=== PATIENT | male | born 1950 | race Caucasian/White ===

== ENCOUNTER 2021-05-11 19:53 | Inpatient (IN) | payer MEDICARE, OTHER ==
[~2021-05-11] VITALS: Ht 182.9 cm; Wt 74.6 kg
[2021-05-11] MEDS ORDERED: OLANZapine ORAL DISINTEGRATING TAB 5MG PO ONE (20:40)
[2021-05-11 22:05] LABS: BASO # 0.1 10^3/uL (0.0-0.2); BASO % 0.6 % (0.0-1.0); EOS # 0.3 10^3/uL (0.0-0.5); HEMATOCRIT 30.2 % (42.0-52.0); LYMPH # 2.8 10^3/uL (1.5-5.0); LYMPH % 19.9 % (24.0-44.0); MEAN CORPUSCULAR HEMOGLOBIN 34.5 pg (27.0-33.0); MEAN CORPUSCULAR HGB CONC 33.1 g/dl (32.0-36.5); MEAN CORPUSCULAR VOLUME 104.1 fl (80.0-96.0); MONO # 1.2 10^3/uL (0.0-0.8); MONO % 8.5 % (2.0-8.0); NEUTROPHILS # 9.6 10^3/uL (1.5-8.5); NEUTROPHILS % 68.6 % (36.0-66.0); PLATELET COUNT, AUTOMATED 294 10^3/uL (150-450); WHITE BLOOD COUNT 14.1 10^3/uL (4.0-10.0)
[2021-05-11 22:41] LABS: ALBUMIN 3.2 GM/DL (3.2-5.2); BILIRUBIN,DIRECT 0.1 MG/DL (0.0-0.2); BILIRUBIN,TOTAL 0.5 MG/DL (0.2-1.0); CALCIUM LEVEL 8.8 MG/DL (8.8-10.2); CK-MB VALUE MASS 102.5 NG/ML (<3.6); CREATININE FOR GFR 2.84 MG/DL (0.70-1.30); GLOMERULAR FILTRATION RATE 23.4 (>42); MB/CK RELATIVE INDEX 1.88 (< OR =4); POTASSIUM SERUM 4.3 MEQ/L (3.5-5.1); TOTAL PROTEIN 6.4 GM/DL (6.4-8.2); TROPONIN I 2.68 NG/ML (< 0.10)
--- NOTE | 2021-05-11 22:54 | REPVR ---
PROCEDURE INFORMATION: Exam: XR Chest Exam date and time: 05/11/2021 10:09 PM Age: 71 years old Clinical indication: Other: Bizarre behavior TECHNIQUE: Imaging protocol: XR of the chest. Views: 1 view. COMPARISON: No relevant prior studies available. FINDINGS: Lungs: There is decreased inflation of the lungs. Minimal left base atelectasis or scar. No focal infiltrates. Pleural spaces: Unremarkable. No pleural effusion. No pneumothorax. Heart/Mediastinum: The heart is within normal limits considering supine position with AP and lordotic projection. Bones/joints: Unremarkable. IMPRESSION: 1. Minimal left base atelectasis or scar. 2. Otherwise negative supine chest. Electronically signed by: Kenji Chu On 05/11/2021 22:53:31 PM
[2021-05-11] MEDS ORDERED: LORazepam 2 MG/ML VIAL IV STA (23:39)
[2021-05-12] MEDS ORDERED: LORazepam 2 MG/ML VIAL IV PRN (02:30)
[2021-05-12] MEDS ORDERED: MAALOX 30 ML SUSP *UDC PO PRN (02:30)
[2021-05-12] MEDS ORDERED: MOM 30ML SUSPENSION UDC PO PRN (02:30)
--- NOTE | 2021-05-12 02:35 | HPEPDOC ---
[facility] Medical History & Physical Date of Admission May 12, 2021 Date of Service: May 12, 2021 History and Physical CHIEF COMPLAINT: AMS, chorea HISTORY OF PRESENT ILLNESS: 71-year-old male with a history of Parkinson's dis ease. Suspected dementia, gout, diabetes type 2, CKD, BPH and hypertension, lives alone, was brought to ER by his daughter for approximately 1 month history of inappropriate behaviors, poor memory and wandering from the house as well as recurrent and non purposeful flailing movements of the upper and lower extremities. The patient is somnolent and disoriented. In the ER with persistent flailing movements of his arms and legs. Patient currently seeing Dr. Lezama for the management of Parkinson's disorder has been compliant with medications. CT of the head was without acute findings Of note, most concerning is an elevated troponin which was found in the ER of 2.68. This was discussed with the patient's daughter, just to proceed with medical management rather than transfer to Medical Center with PCI capabilities. Risks of and morbidity/mortality were explained. Patient was made DNR/DNI in the ED. Dr. Beverly was consulted from the ER. PAST MEDICAL HISTORY: Parkinson's CKD Suspected dementia Gout DM2 BPH HTN SOCIAL HISTORY: Lives alone, daughter lives 30 min away No reported hx of smoking etoh use, illicit drug use FAMILY HISTORY: unable to obtain ALLERGIES: Please see below. REVIEW OF SYSTEMS: unable to complete ROS as patient is disoriented HOME MEDICATIONS: Please see below. PHYSICAL EXAMINATION: VITAL SIGNS: please see below General: NAD, comfortable HEENT: PERRLA, EOMI, sclerae clear Neck: supple, normal ROM, no JVD Respiratory: lungs CTAB, no wheeze, no rales, no crackles CVS: RRR, normal S1, S2, no murmurs Abdo: soft, no masses, no hepatosplenomegaly, BS+, no rebound tenderness Extremities: no edema, pulses 2+ MSK: no joint deformities, normal ROM Neuro: no focal neuro deficits, moving all 4 extremities, CN2-12 intact. Strength 5/5 in all 4 extremities. No nystagmus. Psych: calm, cooperative, AAO x 3 LABORATORY DATA: See below. IMAGING: CXR (05/11/21) 1. Minimal left base atelectasis or scar. 2. Otherwise negative supine chest. CT head wo contrast (05/12/21): IMPRESSION: 1. Minimal chronic ischemic white matter change and moderate atrophy. 2. Otherwise negative noncontrast head CT MICROBIOLOGY: Please see below. ASSESSMENT: 71-year-old male with a history of Parkinson's disease. Suspected dementia, gout, diabetes type 2, CKD, BPH and hypertension, lives alone, was brought to ER by his daughter for approximately 1 month history of inappropriate behaviors, poor memory and wandering from the house as well as recurrent and non purposeful flailing movements of the upper and lower extremities. Follows with Dr. Lezama for Parkinsons. Neurology consult placed with Dr. Beverly . PLAN: AMS/Behaviours with non purposful choreoform movements/Encephalopathy - CT head wo acute changes, report reviewed above. Moderate atrophy - fall precautions - sitter - Patient has Parkinsons's disease, followed by Dr. Lezama. - Neurology consult placed - patient had been started on seroquel 25 mg BID and trazodone outpateint for behaviours - resume carbidopa/levodopa, premipexole, entecapone NSTEMI - Trop 2.67 on arrival. EKG showing no ST elevation - patient does not c/o chest pain - had a lengthy discussion with patient's daughter, chose DNR/DNI and not to proceed with transfer to PCI facility risks of and morbidity were clearly explained - trend trop, EKG - start ASA, plavix, statin HTN - resume carvedilol, amlodipine Leukocytosis - WBC 14.1 - no obvious source of infection identified at this time - CXR without consolidation, no suggestion of infection on UA - Afebrile - possibly reactive - will check procalcitonin, ESR, CRP - defer antibiotics at this time Gout - c/w allopurinol BPH - c/w flomax Vital Signs Vital Signs Date Time Temp Pulse Resp B/P (MAP) Pulse Ox O2 Delivery O2 Flow Rate FiO2 05/12/21 01:57 17 111/60 (77) 94 Room Air 05/12/21 00:53 97.0 05/12/21 00:53 85 Laboratory Data Labs 24H Laboratory Tests 2 05/11/21 21:42: Immature Granulocyte % (Auto) 0.4, Neutrophils (%) (Auto) 68.6H, Lymphocytes (%) (Auto) 19.9L, Monocytes (%) (Auto) 8.5H, Eosinophils (%) (Auto) 2.0, Basophils (%) (Auto) 0.6, Neutrophils # (Auto) 9.6H, Lymphocytes # (Auto) 2.8, Monocytes # (Auto) 1.2H, Eosinophils # (Auto) 0.3, Basophils # (Auto) 0.1, Nucleated Red Blood Cells % (auto) 0.0, Urine Color YANIRA, Urine Appearance CLEAR, Urine pH 5.0, Urine Specific [place] 1.021, Urine Protein 1+H, Urine Glucose (UA) NEGATIVE, Urine Ketones TRACEH, Urine Blood 1+H, Urine Nitrite NEGATIVE, Urine Bilirubin 1+H, Urine Urobilinogen 0.2, Urine Leukocyte Esterase NEGATIVE, Urine WBC (Auto) 2, Urine RBC (Auto) 1, Urine Hyaline Casts (Auto) 26, Urine Bacteria (Auto) NEGATIVE, Urine Squamous Epithelial Cells 0, Urine Mucus (Auto) SMALL, Urine Sperm (Auto) , Anion Gap 7L, Glomerular Filtration Rate 23.4L, Calcium Level 8.8, Total Bilirubin 0.5, Direct Bilirubin 0.1, Aspartate Amino Transf (AST/SGOT) 164H, Alanine Aminotransferase (ALT/SGPT) 10L, Alkaline Phosphatase 74, Total Creatine Kinase 5443H, Creatine Kinase MB 102.5H, Creatine Kinase MB Relative Index 1.88, Troponin I 2.68*H, Total Protein 6.4, Albumin 3.2, Albumin/Globulin Ratio 1.0, Lipase 65L CBC/BMP Laboratory Tests 05/11/21 21:42 Home Medications Scheduled Acyclovir (Acyclovir) 200 Mg Capsule, 200 MG PO TID 1000,1400,1800 Allopurinol (Zyloprim) 300 Mg Tablet, 150 MG PO DAILY Amitriptyline HCl (Amitriptyline HCl) 75 Mg Tablet, 75 MG PO QHS Amlodipine Besylate (Amlodipine Besylate) 5 Mg Tablet, 5 MG PO DAILY Carbidopa/Levodopa (Carbidopa-Levodopa 25-100 Tab) 1 Each Tablet, 2.5 TABS PO TID 1000,1400,1800 Carbidopa/Levodopa (Carbidopa-Levo ER 50-200 Tab) 1 Each Tablet.er, 1 TAB PO QHS Carvedilol (Carvedilol) 25 Mg Tablet, 25 MG PO BID Divalproex Sodium (Divalproex Sodium) 250 Mg Tablet.dr, 500 MG PO BID Entacapone (Entacapone) 200 Mg Tablet, 200 MG PO TID 1000,1400,1800 Epoetin Vito-Epbx (Retacrit) 10,000 Unit/1 Ml Vial, 1,000 UNITS SC QMONTH Ergocalciferol (Vitamin D2) (Vitamin D2) 50,000 Units Cap, 50,000 UNITS PO QWEEK FRIDAY Finasteride (Finasteride) 5 Mg Tablet, 5 MG PO DAILY Folic Acid (Folic Acid) 1 Mg Tablet, 1 MG PO DAILY Levocetirizine Dihydrochloride (Levocetirizine Dihydrochloride) 5 Mg Tablet, 5 MG PO QPM Levothyroxine Sodium (Levothyroxine Sodium) 100 Mcg Tablet, 100 MCG PO QAM Multivit-Min/FA/Lycopen/Lutein (Centrum Silver Tablet) 1 Each Tablet, 1 TAB PO DAILY Pantoprazole Sodium (Pantoprazole Sodium) 40 Mg Tablet.dr, 40 MG PO QHS Potassium Chloride (Potassium Chloride) 10 Meq Tablet.er, 10 MEQ PO DAILY Pramipexole Di-HCl (Mirapex) 0.25 Mg Tablet, 0.25 MG PO TID 1000,1400,1800 Pregabalin (Pregabalin) 50 Mg Capsule, 50 MG PO TID Quetiapine Fumarate (Quetiapine Fumarate) 25 Mg Tablet, 25 MG PO BID Sennosides (Senna) 8.6 Mg Tablet, 8.6 MG PO DAILY Sitagliptin Phosphate (Januvia) 100 Mg Tablet, 100 MG PO QAM Tamsulosin Hcl (Tamsulosin HCl) 0.4 Mg Capsule, 0.4 MG PO QPM Trazodone HCl (Trazodone HCl) 100 Mg Tablet, 200 MG PO QHS Scheduled PRN Polyethylene Glycol 3350 (Miralax) 119 Gm Powder, 17 GM PO DAILY PRN for CONSTIPATION dilute in 8 ounces of water or juice Allergies Coded Allergies: No Known Allergies (Unverified , 05/11/21) WILBERT COFFEY MD May 12, 2021 02:35
--- NOTE | 2021-05-12 03:04 | REPVR ---
PROCEDURE INFORMATION: Exam: CT Head Without Contrast Exam date and time: 05/12/2021 2:49 AM Age: 71 years old Clinical indication: Altered mental status/memory loss; Additional info: AMS TECHNIQUE: Imaging protocol: Computed tomography of the head without contrast. Radiation optimization: All CT scans at this facility use at least one of these dose optimization techniques: automated exposure control; mA and/or kV adjustment per patient size (includes targeted exams where dose is matched to clinical indication); or iterative reconstruction. COMPARISON: No relevant prior studies available. FINDINGS: Brain: There is minimal patchy low attenuation of deep white matter. There is moderate prominence of the peripheral sulci. Cerebral ventricles: There is moderate prominence of the central ventricular system. Paranasal sinuses: Visualized sinuses are unremarkable. No fluid levels. Mastoid air cells: Visualized mastoid air cells are well aerated. Bones/joints: Unremarkable. No acute fracture. Soft tissues: Unremarkable. IMPRESSION: 1. Minimal chronic ischemic white matter change and moderate atrophy. 2. Otherwise negative noncontrast head CT. Electronically signed by: Kenji Chu On 05/12/2021 03:03:08 AM
[2021-05-12] MEDS ORDERED: MIRA3350 PO (03:08)
[2021-05-12] MEDS ORDERED: FINA5TAB2 PO (03:08)
[2021-05-12] MEDS ORDERED: SENN-80 PO (03:08)
[2021-05-12] MEDS ORDERED: TAMS1CAP17 PO (03:08)
[2021-05-12] MEDS ORDERED: CARB25TA9 PO (03:08)
[2021-05-12] MEDS ORDERED: RETA1000 SC (03:08)
[2021-05-12] MEDS ORDERED: ERGO500029 PO (03:08)
[2021-05-12] MEDS ORDERED: CENT1TAB PO (03:08)
[2021-05-12] MEDS ORDERED: POTA1TAB23 PO (03:08)
[2021-05-12] MEDS ORDERED: AMLO1TAB24 PO (03:08)
[2021-05-12] MEDS ORDERED: JANU100T PO (03:08)
[2021-05-12] MEDS ORDERED: LEVO100T5 PO (03:08)
[2021-05-12] MEDS ORDERED: PREG50CA2 PO (03:08)
[2021-05-12] MEDS ORDERED: ACYC200C8 PO (03:08)
[2021-05-12] MEDS ORDERED: MIRA0.254 PO (03:08)
[2021-05-12] MEDS ORDERED: PANT40TA29 PO (03:08)
[2021-05-12] MEDS ORDERED: CARV25TA PO (03:08)
[2021-05-12] MEDS ORDERED: QUET25TA3 PO (03:08)
[2021-05-12] MEDS ORDERED: FOLI1TAB11 PO (03:08)
[2021-05-12] MEDS ORDERED: TRAZ-189 PO (03:08)
[2021-05-12] MEDS ORDERED: ZYLO300T6 PO (03:08)
[2021-05-12] MEDS ORDERED: DIVA250T67 PO (03:08)
[2021-05-12] MEDS ORDERED: ENTA1TAB PO (03:08)
[2021-05-12] MEDS ORDERED: LEVOTAB10 PO (03:08)
[2021-05-12] MEDS ORDERED: CARB1TAB97 PO (03:08)
[2021-05-12] MEDS ORDERED: AMIT75TA PO (03:08)
[2021-05-12] MEDS ORDERED: CLOPIDOGREL 300 MG TAB (PLAVIX) PO STA (03:32)
[2021-05-12] MEDS: ASPIRIN 81 MG CHEW TABLET PO SCH (03:35)
[2021-05-12 03:37] LABS: RSV AMPLIFICATION NEGATIVE (NEGATIVE)
[2021-05-12 05:34] LABS: CK-MB VALUE MASS 91.5 NG/ML (<3.6); MB/CK RELATIVE INDEX 1.8 (< OR =4)
[2021-05-12 05:50] VITALS: BP 106/70
[2021-05-12] MEDS ORDERED: HEPARIN SOD (PORCINE) 5000UNITS/ML 1ML VIAL/SYRINGE SC SCH (06:00)
[2021-05-12] MEDS: ATORVASTATIN 20 MG TAB PO SCH ×2 (06:00→21:33)
[2021-05-12 06:06] LABS: TROPONIN I 2.59 NG/ML (< 0.10)
[2021-05-12] MEDS ORDERED: GLUCAGON INJ 1MG VIAL SC PRN (06:25)
[2021-05-12] MEDS ORDERED: GLUCOSE 4GM CHEW TABLET PO PRN (06:25)
[2021-05-12] MEDS ORDERED: DEXTROSE 50% 50 ML SYRINGE IV PRN (06:25)
[2021-05-12] MEDS ORDERED: PILL CUTTER 1 EACH XX PRN (06:35)
[2021-05-12 06:57] LABS: BASO # 0.1 10^3/uL (0.0-0.2); BASO % 0.7 % (0.0-1.0); EOS # 0.4 10^3/uL (0.0-0.5); EOS % 4.3 % (0.0-3.0); HEMATOCRIT 28.5 % (42.0-52.0); HEMOGLOBIN 9.6 g/dl (13.5-17.5); LYMPH # 2.9 10^3/uL (1.5-5.0); LYMPH % 29.2 % (24.0-44.0); MEAN CORPUSCULAR HEMOGLOBIN 34.4 pg (27.0-33.0); MEAN CORPUSCULAR HGB CONC 33.7 g/dl (32.0-36.5); MEAN CORPUSCULAR VOLUME 102.2 fl (80.0-96.0); MONO # 0.7 10^3/uL (0.0-0.8); MONO % 6.6 % (2.0-8.0); NEUTROPHILS # 5.8 10^3/uL (1.5-8.5); NEUTROPHILS % 58.9 % (36.0-66.0); PLATELET COUNT, AUTOMATED 263 10^3/uL (150-450); RED BLOOD COUNT 2.79 10^6/uL (4.30-6.10); WHITE BLOOD COUNT 9.8 10^3/uL (4.0-10.0)
[2021-05-12] MEDS: HumaLOG INSULIN (NovoLOG) PER UNIT SC SCH ×4 (07:30→21:00)
[2021-05-12 07:47] VITALS: BP 102/59
[2021-05-12 07:47] LABS: ERYTHROCYTE SEDIMENTATION RATE 61 mm/hr (0-20)
[2021-05-12 08:27] LABS: BILIRUBIN,TOTAL 0.4 MG/DL (0.2-1.0); C REACTIVE PROTEIN QUANTITATIV 1.46 MG/DL (0.00-0.30); CALCIUM LEVEL 8.3 MG/DL (8.8-10.2); CREATININE FOR GFR 2.17 MG/DL (0.70-1.30); MAGNESIUM LEVEL 2.6 MG/DL (1.8-2.4); POTASSIUM SERUM 3.4 MEQ/L (3.5-5.1); TOTAL PROTEIN 6.1 GM/DL (6.4-8.2)
[2021-05-12] MEDS: DOCUSATE SODIUM 100MG CAPSULE PO SCH ×2 (09:00→21:30)
[2021-05-12] MEDS: PREGABALIN 50 MG CAP (LYRICA) PO SCH ×3 (09:00→21:30)
[2021-05-12] MEDS: POTASSIUM CHLORIDE 10 MEQ SR TABLET PO SCH (09:00)
[2021-05-12] MEDS: amLODIPine 5 MG TAB PO SCH (09:00)
[2021-05-12] MEDS: MULTIVITAMINS/MINERALS THERAP 1 TAB PO SCH (09:00)
[2021-05-12] MEDS: allopurinoL 300 MG TAB PO SCH (09:00)
[2021-05-12] MEDS: FOLIC ACID 1 MG TAB PO SCH (09:00)
[2021-05-12] MEDS: CARVedilol 12.5 MG TAB PO SCH ×2 (09:00→21:00)
--- NOTE | 2021-05-12 09:31 | REP ---
INDICATION: renal disease COMPARISON: None TECHNIQUE: Real time james scale ultrasound examination using curved array transducer. FINDINGS: The kidneys are normal reniform shape and size with increased central sinus fat suggesting age-related changes. No hydronephrosis, nephrolithiasis, cystic or mass lesion. No perinephric fluid collection. Right kidney measures 9.2 x 5.5 x 4.6 cm. Left kidney measures 9.7 x 4.1 x 5.3 cm. Bladder is normal. IMPRESSION: Age-related changes. No hydronephrosis or obvious renal abnormality. <Electronically signed by Dwight Sadler > 05/12/21 0928
[2021-05-12] MEDS ORDERED: SLF 3 ML SYR IV PRN (09:35)
[2021-05-12] MEDS: ACYCLOVIR 200 MG CAPSULE PO SCH ×3 (10:00→18:23)
[2021-05-12] MEDS: ENTACAPONE 200MG TABLET (COMTAN) PO SCH ×3 (10:00→18:23)
[2021-05-12] MEDS: SINEMET 25-100 MG TAB PO SCH ×3 (10:00→18:23)
[2021-05-12] MEDS: PRAMIPEXOLE 0.25 MG TAB PO SCH ×3 (10:00→18:23)
[2021-05-12 10:52] LABS: TROPONIN I 3.66 NG/ML (< 0.10)
--- NOTE | 2021-05-12 11:16 | IPNPDOC ---
Date Seen The patient was seen on 05/12/21. Progress Note CRITICAL VALUE: TROPONIN 3/acute nstemi PLAN: As previously discussed with pt's daughter, medical management for acute nstemi per family and pt's wishes. continue ASA plavix,statin. added prn nitroglycerin, prn morphine for angina, and lovenox 1mg sq q12hrs renally dosed bypharmacy beta baylee and nancy inhibitor if sbp stable.stat echo. prn ekg to check for progression. VS, I&O, 24H, Fishbone Vital Signs/I&O Vital Signs Date Time Temp Pulse Resp B/P (MAP) Pulse Ox O2 Delivery O2 Flow Rate FiO2 05/12/21 07:47 97.1 69 18 102/59 (73) 95 Room Air Laboratory Data 24H LABS Laboratory Tests 2 05/11/21 21:42: Immature Granulocyte % (Auto) 0.4, Neutrophils (%) (Auto) 68.6H, Lymphocytes (%) (Auto) 19.9L, Monocytes (%) (Auto) 8.5H, Eosinophils (%) (Auto) 2.0, Basophils (%) (Auto) 0.6, Neutrophils # (Auto) 9.6H, Lymphocytes # (Auto) 2.8, Monocytes # (Auto) 1.2H, Eosinophils # (Auto) 0.3, Basophils # (Auto) 0.1, Nucleated Red Blood Cells % (auto) 0.0, Urine Color YANIRA, Urine Appearance CLEAR, Urine pH 5.0, Urine Specific [place] 1.021, Urine Protein 1+H, Urine Glucose (UA) NEGATIVE, Urine Ketones TRACEH, Urine Blood 1+H, Urine Nitrite NEGATIVE, Urine Bilirubin 1+H, Urine Urobilinogen 0.2, Urine Leukocyte Esterase NEGATIVE, Urine WBC (Auto) 2, Urine RBC (Auto) 1, Urine Hyaline Casts (Auto) 26, Urine Bacteria (Auto) NEGATIVE, Urine Squamous Epithelial Cells 0, Urine Mucus (Auto) SMALL, Urine Sperm (Auto) , Anion Gap 7L, Glomerular Filtration Rate 23.4L, Calcium [place] 8.8, Total Bilirubin 0.5, Direct Bilirubin 0.1, Aspartate Amino Transf (AST/SGOT) 164H, Alanine Aminotransferase (ALT/SGPT) 10L, Alkaline Phosphatase 74, Total Creatine Kinase 5443H, Creatine Kinase MB 102.5H, Creatine Kinase MB Relative Index 1.88, Troponin I 2.68*H, Total Protein 6.4, Albumin 3.2, Albumin/Globulin Ratio 1.0, Lipase 65L 05/12/21 02:32: Coronavirus (COVID-19)(PCR) NEGATIVE, Influenza Type A (RT-PCR) NEGATIVE, Influenza Type B (RT-PCR) NEGATIVE, Respiratory Syncytial Virus (PCR) NEGATIVE 05/12/21 04:27: Total Creatine Kinase 5095H, Creatine Kinase MB 91.5H, Creatine Kinase MB Relative Index 1.80, Troponin I 2.59*H 05/12/21 06:50: Immature Granulocyte % (Auto) 0.3, Neutrophils (%) (Auto) 58.9, Lymphocytes (%) (Auto) 29.2, Monocytes (%) (Auto) 6.6, Eosinophils (%) (Auto) 4.3H, Basophils (%) (Auto) 0.7, Neutrophils # (Auto) 5.8, Lymphocytes # (Auto) 2.9, Monocytes # (Auto) 0.7, Eosinophils # (Auto) 0.4, Basophils # (Auto) 0.1, Nucleated Red Blood Cells % (auto) 0.0, Anion Gap 2L, Glomerular Filtration Rate 32.0L, Calcium Level 8.3L, Total Bilirubin 0.4, Aspartate Amino Transf (AST/SGOT) 162H, Alanine Aminotransferase (ALT/SGPT) 12, Alkaline Phosphatase 73, Total Protein 6.1L, Albumin 3.0L, Albumin/Globulin Ratio 1.0, Erythrocyte Sedimentation Rate 61H, Magnesium Level 2.6H, C-Reactive Protein, Quantitative 1.46H 05/12/21 10:00: Troponin I 3.66#*H CBC/BMP Laboratory Tests 05/11/21 21:42 05/12/21 06:50 Microbiology Microbiology 05/12/21 Blood Culture, Received Pending 05/12/21 Blood Culture, Received Pending CLIFFORD BAUTISTA MD May 12, 2021 11:15
[2021-05-12] MEDS: ENOXAPARIN 60MG/0.6ML SYRINGE (J1650 PER 10MG) SC SCH (11:42)
[2021-05-12 12:00] VITALS: BP 106/58
[2021-05-12] MEDS ORDERED: POTASSIUM CHLORIDE 10 MEQ SR TABLET PO ONE (12:00)
--- NOTE | 2021-05-12 12:55 | ECGEPIP ---
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 Clincal correlation advised Electronically Signed on 05-12-2021 12:55:05 EDT by Gurwinder Marin
--- NOTE | 2021-05-12 12:57 | ECGEPIP ---
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 Low limb voltages Frontal axis shift but different precordial lead placement from 05/12/[address]/T wave abnormalities Electronically Signed on 05-12-2021 12:56:48 EDT by Gurwinder Marin
[2021-05-12 12:58] LABS: CK-MB VALUE MASS 75.3 NG/ML (<3.6); MB/CK RELATIVE INDEX 2.44 (< OR =4)
[2021-05-12] MEDS: QUEtiapine FUMARATE 25 MG TAB PO SCH ×2 (14:17→21:31)
[2021-05-12] MEDS: DIVALPROEX 500 MG TAB PO SCH ×2 (14:18→21:31)
[2021-05-12] MEDS: FINASTERIDE 5 MG TAB PO SCH (14:18)
[2021-05-12] MEDS: SLF 3 ML SYR IV SCH ×2 (14:19→22:30)
[2021-05-12] MEDS: ACETAMINOPHEN TAB 650MG DOSE (2X325MG) PO PRN (17:15)
[2021-05-12] MEDS ORDERED: AMITRIPTYLINE 25MG TABLET PO SCH (21:00)
[2021-05-12] MEDS ORDERED: SINEMET**CR** 25/100 TABCR PO SCH (21:00)
[2021-05-12 21:02] VITALS: BP 105/74
[2021-05-12] MEDS: PANTOPRAZOLE 40MG TAB (PROTONIX) PO SCH (21:30)
[2021-05-12] MEDS: TAMSULOSIN 0.4 MG CAP PO SCH (21:30)
[2021-05-12] MEDS: traZODone 100 MG TAB PO SCH (21:56)
--- NOTE | 2021-05-12 22:23 | ECHO ---
ECHOCARDIOGRAM DATE OF PROCEDURE: 05/12/2021 Age: 71 Gender: Male Height: 72 inches Weight: 141 pounds Body surface area: 1.83 m2 REFERRING PHYSICIAN: Dr. Leesa Gil PATIENT LOCATION: Inpatient PCU Room 3216 INDICATION: Acute myocardial infarction MEASUREMENTS: 2D Measurements RV 3.0 cm LV 4.0 cm Septum 0.9 cm Posterior wall 0.9 cm Aortic root 2.7 cm LA 3.6 cm LVEF 75% Doppler Measurements: AV 1.49 m/s LVOT 1.1 m/s MV-E 72, A 141, E/A ratio 0.5 Early mitral deceleration time 230 msec E prime medial 6.5, A prime medial 11.5, E prime lateral 8.2 Average E/E prime ratio 9.8/PCWP 14 mmHg PV Could not be visualized RVSP Could not be accurately estimated IVC 1.5 cm COMMENTS: Normal sinus rhythm with first degree AV block, but no intraventricular conduction disturbance. Technically challenging study in light of the patient's body habitus, but diagnostically useful information was still obtained. Normal left ventricular size and wall thickness. Could not rule out a very proximal inferior wall motion abnormality, but hyperkinetic global systolic function. Normal left atrial size with grade 1 LV diastolic dysfunction, but currently normal estimated mean left atrial pressure. Normal right heart chamber sizes and hyperkinetic wall motion. Normal IVC size and collapse against an elevated central venous pressure. Normal aortic dimensions. Mild aortic valvular sclerosis without functional abnormality. Mild degenerative changes of the mitral valvular apparatus without apparent functional abnormality. Normal appearing tricuspid valve with no more than trace insufficiency. No apparent intracardiac mass or pericardial effusion. MTDD
[2021-05-13 04:00] VITALS: BP 112/63
[2021-05-13 05:52] LABS: HEMATOCRIT 28.4 % (42.0-52.0); HEMOGLOBIN 9.5 g/dl (13.5-17.5); MEAN CORPUSCULAR HEMOGLOBIN 34.7 pg (27.0-33.0); MEAN CORPUSCULAR HGB CONC 33.5 g/dl (32.0-36.5); MEAN CORPUSCULAR VOLUME 103.6 fl (80.0-96.0); PLATELET COUNT, AUTOMATED 270 10^3/uL (150-450); RED BLOOD COUNT 2.74 10^6/uL (4.30-6.10); WHITE BLOOD COUNT 5.3 10^3/uL (4.0-10.0)
[2021-05-13 06:11] LABS: ALBUMIN 2.8 GM/DL (3.2-5.2); BILIRUBIN,TOTAL 0.3 MG/DL (0.2-1.0); CALCIUM LEVEL 8.3 MG/DL (8.8-10.2); CREATININE FOR GFR 1.78 MG/DL (0.70-1.30); GLOMERULAR FILTRATION RATE 40.2 (>42); POTASSIUM SERUM 3.9 MEQ/L (3.5-5.1); TOTAL PROTEIN 5.8 GM/DL (6.4-8.2)
[2021-05-13] MEDS: SLF 3 ML SYR IV SCH ×3 (06:12→21:08)
[2021-05-13] MEDS: HumaLOG INSULIN (NovoLOG) PER UNIT SC SCH ×4 (07:30→21:00)
[2021-05-13 07:53] VITALS: BP 121/67
[2021-05-13 08:49] LABS: CK-MB VALUE MASS 26.7 NG/ML (<3.6); MB/CK RELATIVE INDEX 2.36 (< OR =4); TROPONIN I 2.89 NG/ML (< 0.10)
[2021-05-13] MEDS ORDERED: PERCOCET 5MG/325MG TAB PO ONE (09:00)
[2021-05-13] MEDS: CARVedilol 12.5 MG TAB PO SCH ×2 (09:09→21:07)
[2021-05-13] MEDS: amLODIPine 5 MG TAB PO SCH (09:09)
[2021-05-13] MEDS: DIVALPROEX 500 MG TAB PO SCH ×2 (09:10→21:03)
[2021-05-13] MEDS: ENTACAPONE 200MG TABLET (COMTAN) PO SCH ×3 (09:10→17:18)
[2021-05-13] MEDS: ASPIRIN 81 MG CHEW TABLET PO SCH (09:10)
[2021-05-13] MEDS: allopurinoL 300 MG TAB PO SCH (09:10)
[2021-05-13] MEDS: PREGABALIN 50 MG CAP (LYRICA) PO SCH ×3 (09:11→21:05)
[2021-05-13] MEDS: POTASSIUM CHLORIDE 10 MEQ SR TABLET PO SCH (09:11)
[2021-05-13] MEDS: PRAMIPEXOLE 0.25 MG TAB PO SCH ×3 (09:11→17:18)
[2021-05-13] MEDS: FOLIC ACID 1 MG TAB PO SCH (09:11)
[2021-05-13] MEDS: MULTIVITAMINS/MINERALS THERAP 1 TAB PO SCH (09:11)
[2021-05-13] MEDS: CLOPIDOGREL 75 MG TAB PO SCH (09:11)
[2021-05-13] MEDS: FINASTERIDE 5 MG TAB PO SCH (09:11)
[2021-05-13] MEDS: ACYCLOVIR 200 MG CAPSULE PO SCH ×3 (09:11→17:17)
[2021-05-13] MEDS: DOCUSATE SODIUM 100MG CAPSULE PO SCH ×2 (09:12→21:04)
[2021-05-13] MEDS: SINEMET 25-100 MG TAB PO SCH ×3 (10:00→17:18)
[2021-05-13] MEDS: ENOXAPARIN 60MG/0.6ML SYRINGE (J1650 PER 10MG) SC SCH (13:28)
--- NOTE | 2021-05-13 15:10 | CR ---
CONSULTATION DATE: 05/13/2021 REFERRING PHYSICIAN: Raji Alvarez MD REASON FOR CONSULTATION: Altered mental status. HISTORY OF PRESENT ILLNESS: Edy Tillman is a 71-year-old man with history of Parkinsonism, dementia, diabetes, chronic kidney disease, prostate enlargement, hypertension who lives alone and was brought to emergency department by his daughter due to inappropriate behavior for the last one month, poor memory, wandering from house, recurrent nonpurposeful flailing movements of arms and legs. The patient was somnolent, disoriented. He had flailing movements of arms and legs in the emergency department. CT scan of head showed small vessel ischemic disease of brainstem and atrophy. The patient was also found to have troponin 2.68 which increased to 3.66 the next day. The patient's daughter decided with medical management instead of transferring to [facility] for consideration of cardiac catheterization. The patient was made DNR and DNI in the emergency department. The patient has history of tremor according to outpatient medical record since 2002. He has been following with neurology on and off for several years. He had been following with Dr. Lezama for the last 4-5 years for Parkinsonism and has been taking Sinemet. He is also on Quetiapine. He was unable to provide any meaningful history currently. When I saw patient, he was drowsy and would open his eyes to physical stimuli but would not respond to verbal stimuli unless physically stimulated. He would fall back asleep. He had not taken his medications since the night before. PAST MEDICAL HISTORY: Parkinsonism, chronic kidney disease, dementia, gout, diabetes, prostate enlargement, hypertension. SOCIAL HISTORY: He lives alone. Daughter lives 30 minutes away. There are no reports of smoking, alcohol or illicit drugs. FAMILY HISTORY: Could not be obtained. REVIEW OF SYSTEMS: Could not be obtained. HOME MEDICATIONS: 1. Acyclovir 200 mg p.o. t.i.d. 2. Allopurinol 150 mg p.o. daily. 3. Amitriptyline 75 mg p.o. q.h.s. 4. Sinemet 25/100 mg, 2.5 tablets p.o. t.i.d. 5. Sinemet extended release one tablet p.o. daily. 6. Carvedilol 25 mg p.o. b.i.d. 7. Depakote 500 mg p.o. b.i.d. 8. Entacapone 200 mg p.o. t.i.d. 9. Vitamin D2 50,000 units once a week. 10. Finasteride 5 mg p.o. daily. 11. Folic acid 1 mg p.o. daily. 12. Levothyroxine 100 mcg p.o. daily. 13. Levocetirizine 5 mg p.o. daily. 14. Protonix 40 mg p.o. daily. 15. Potassium chloride 10 mEq p.o. daily. 16. Pramipexole 0.25 mg p.o. t.i.d. 17. Lyrica 50 mg p.o. t.i.d. 18. Quetiapine 25 mg p.o. b.i.d. 19. Sennoside 8.6 mg p.o. daily. 20. Januvia 100 mg p.o. daily. 21. Flomax 0.4 mg p.o. daily. 22. Trazodone 200 mg p.o. q.h.s. ALLERGIES: None. PHYSICAL EXAMINATION: VITAL SIGNS: Temperature 97.1, pulse 69, respiratory rate 18, blood pressure 102/59, 95% saturation on room air. HEART: Regular rate and rhythm. LUNGS: Clear to auscultation. ABDOMEN: Soft, nontender, nondistended. EXTREMITIES: No pedal edema. MUSCULOSKELETAL: No abnormalities. SKIN: No rash. NEUROLOGICAL: No signs of meningeal irritation. The patient is drowsy, obtunded and wakes up to physical stimuli and tries to open his eyes and says a couple of words only. Speech appeared hypophonic. No facial weakness. The patient moves all four extremities and withdraws to pain equally, both sides. Sensory, cerebellar and gait testing could not be performed. Plantars are downgoing. I did not see any abnormal movements while the patient was sleeping. ASSESSMENT: 1. Suspected Lewy body dementia. 2. Parkinsonism. 3. Dyskinesias with motor fluctuations. PLAN: 1. Decrease Sinemet 225/100 mg one tablet p.o. t.i.d. 2. Decrease Depakote to 25 mg p.o. q.h.s. 3. Decrease amitriptyline to 25 mg p.o. q.h.s. and keep to minimum during the daytime.
[2021-05-13 20:05] VITALS: BP 104/60
--- NOTE | 2021-05-13 20:09 | IPN ---
PROGRESS NOTE DATE: 05/13/2021 SUBJECTIVE: Despite non ST elevation myocardial infarction, on Aspirin, Plavix and Lovenox, the patient denies any chest pain, pressure, tightness or shortness of breath this morning. 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 Telemetry unremarkable. OBJECTIVE: PHYSICAL EXAMINATION: VITAL SIGNS: Temperature 97.9, pulse 73, respiratory rate 17, blood pressure 121/67, oxygen saturation 96% on room air. GENERAL APPEARANCE: The patient is awake, alert, oriented to himself, answering questions appropriately. LUNGS: Clear to auscultation. No rales, rhonchi or wheezes. HEART: S1, S2, sinus rhythm. ABDOMEN: Soft, nontender, nondistended. Positive bowel sounds. EXTREMITIES: No clubbing, cyanosis, or pitting edema. LABORATORY DATA: Reviewed. IMAGING STUDIES: Reviewed. MICROBIOLOGY: Reviewed. ASSESSMENT AND PLAN: This is a 71-year-old male admitted on 05/12/2021 with a history of Parkinson's, chronic kidney disease stage 3, suspected dementia, gout, type 2 diabetes, hypertension, benign prostatic hypertrophy , brought in due to altered mental status and movement disorder. The patient was found to have acute coronary syndrome with troponins reaching 2.68 but asymptomatic. Healthcare proxy and patient refused transfer to [facility] or [facility] in [place] for further treatment of his acute coronary syndrome and had been started on Aspirin, Plavix and Lovenox injections as well as statin medications. He was made Do Not Resuscitate/Do Not Intubate in the Emergency Room per his wishes, and his daughter is the healthcare proxy. Due to movement disorder, the patient was to be evaluated by Neurologist, Dr. Beverly for his chorea. Active issues are as follows: 1. Non ST elevation myocardial infarction. 2. Acute encephalopathy secondary to worsening dementia with a history of Parkinson's disease and Parkinsonism. 3. Hypertension. 4. Leukocytosis but no acute infectious etiology. 5. Chronic gout. 6. Chronic benign prostatic hypertrophy. 7. Gait abnormality. 8. Type 2 diabetes. PLAN: The patient is currently being treated for non ST elevation myocardial infarction with Aspirin, Plavix and Lovenox and statin medication. The patient had been placed on Carbidopa at 10:00, 14:00 and 18:00 25/100. Continued on Seroquel 25 q. h.s. Neurologist consulted to help manage the chorea form movement and determine what could be causing this. He is continued on all other home medications: Flomax, Protonix, Comtan. We are uncertain why the patient takes Zovirax. MTDD
[2021-05-13] MEDS: ATORVASTATIN 20 MG TAB PO SCH (21:04)
[2021-05-13] MEDS: PANTOPRAZOLE 40MG TAB (PROTONIX) PO SCH (21:04)
[2021-05-13] MEDS: QUEtiapine FUMARATE 25 MG TAB PO SCH (21:05)
[2021-05-13] MEDS: AMITRIPTYLINE 25MG TABLET PO SCH (21:07)
[2021-05-13] MEDS: TAMSULOSIN 0.4 MG CAP PO SCH (21:32)
[2021-05-13] MEDS: traZODone 100 MG TAB PO SCH (21:33)
[2021-05-14 00:45] VITALS: BP 109/58
[2021-05-14 04:50] VITALS: BP 129/70
[2021-05-14] MEDS: SLF 3 ML SYR IV SCH ×3 (05:14→20:44)
[2021-05-14 05:28] LABS: HEMATOCRIT 30.7 % (42.0-52.0); HEMOGLOBIN 10.1 g/dl (13.5-17.5); MEAN CORPUSCULAR HEMOGLOBIN 34.6 pg (27.0-33.0); MEAN CORPUSCULAR HGB CONC 32.9 g/dl (32.0-36.5); MEAN CORPUSCULAR VOLUME 105.1 fl (80.0-96.0); PLATELET COUNT, AUTOMATED 267 10^3/uL (150-450); RED BLOOD COUNT 2.92 10^6/uL (4.30-6.10); WHITE BLOOD COUNT 6.8 10^3/uL (4.0-10.0)
[2021-05-14 05:48] LABS: ALBUMIN 2.8 GM/DL (3.2-5.2); BILIRUBIN,TOTAL 0.2 MG/DL (0.2-1.0); CALCIUM LEVEL 8.2 MG/DL (8.8-10.2); CREATININE FOR GFR 1.5 MG/DL (0.70-1.30); POTASSIUM SERUM 4.1 MEQ/L (3.5-5.1)
[2021-05-14] MEDS: HumaLOG INSULIN (NovoLOG) PER UNIT SC SCH ×4 (07:30→20:43)
[2021-05-14 08:00] VITALS: BP 124/71
[2021-05-14 08:28] LABS: CK-MB VALUE MASS 9.9 NG/ML (<3.6); MB/CK RELATIVE INDEX 2.58 (< OR =4); TROPONIN I 1.51 NG/ML (< 0.10)
[2021-05-14] MEDS: allopurinoL 300 MG TAB PO SCH (09:05)
[2021-05-14] MEDS: ASPIRIN 81 MG CHEW TABLET PO SCH (09:06)
[2021-05-14] MEDS: FINASTERIDE 5 MG TAB PO SCH (09:06)
[2021-05-14] MEDS: DIVALPROEX 500 MG TAB PO SCH (09:06)
[2021-05-14] MEDS: MULTIVITAMINS/MINERALS THERAP 1 TAB PO SCH (09:06)
[2021-05-14] MEDS: ACETAMINOPHEN TAB 650MG DOSE (2X325MG) PO PRN (09:09)
[2021-05-14] MEDS: FOLIC ACID 1 MG TAB PO SCH (09:09)
[2021-05-14] MEDS: DOCUSATE SODIUM 100MG CAPSULE PO SCH ×2 (09:09→20:37)
[2021-05-14] MEDS: PREGABALIN 50 MG CAP (LYRICA) PO SCH ×3 (09:09→20:38)
[2021-05-14] MEDS: CLOPIDOGREL 75 MG TAB PO SCH (09:09)
[2021-05-14] MEDS: amLODIPine 5 MG TAB PO SCH (09:10)
[2021-05-14] MEDS: CARVedilol 12.5 MG TAB PO SCH ×2 (09:11→20:41)
[2021-05-14] MEDS: ENTACAPONE 200MG TABLET (COMTAN) PO SCH ×3 (09:26→18:19)
[2021-05-14] MEDS: POTASSIUM CHLORIDE 10 MEQ SR TABLET PO SCH (09:26)
[2021-05-14] MEDS: SINEMET 25-100 MG TAB PO SCH ×3 (09:26→18:20)
[2021-05-14] MEDS: ACYCLOVIR 200 MG CAPSULE PO SCH ×3 (09:26→18:20)
[2021-05-14] MEDS: PRAMIPEXOLE 0.25 MG TAB PO SCH ×3 (10:25→18:19)
[2021-05-14 12:00] VITALS: BP 122/66
--- NOTE | 2021-05-14 12:14 | IPN ---
PROGRESS NOTE DATE: 05/14/2021 SUBJECTIVE: Patient was seen and examined at the bedside. Chart has been reviewed. He denies any chest pain, pressure or tightness, lightheadedness, dizziness. Currently still on Lovenox for a non-ST elevation myocardial infarction. No nausea or vomiting, epinephrine pain. No other issues per nursing. Telemetry unremarkable. OBJECTIVE: Vital signs: Temperature 97.6, pulse 68, respiratory rate 12, blood pressure 124/71, 95% on room air. General: Awake, alert, oriented to person and place, answering questions appropriately in no distress. HEENT: Dry mucous membranes with chapped lips. Neck: No JVD, no thyromegaly. Lungs: Diminished, but clear to auscultation, no wheezes, rhonchi or rales. Heart: S1 and S2 sinus rhythm. Abdomen: Soft, nontender, nondistended. Extremities: No cyanosis or clubbing. No pitting edema. Neurologic: Patient is awake, alert, oriented to person and place, answering questions appropriately. Speech is fluent. Motor function is 5/5 times 4 extremities. No sensory disturbance. Gait was not tested. LABORATORY DATA: Laboratory studies and microbiology have been reviewed. IMAGING STUDIES: Reviewed. ASSESSMENT: This is a 71-year-old male with suspected Lewy Body dementia, Parkinsonism, dyskinesia with motor fluctuations, BPH, diabetes, chronic kidney disease stage 3, hypertension brought into the Emergency Room due to altered mental status with poor memory and wandering around the house with flailing movements of his arms and legs, appeared to be somnolent and disoriented. Patient was admitted to the Hospitalist Service. Neurologist Dr. Beverly was consulted and felt that the patient had the following issues: 1. Suspected Lewy Body dementia. 2. Parkinsonism. 3. Dyskinesia with motor fluctuations. 4. Non-ST elevation myocardial infarction. 5. Chronic kidney disease stage 3. 6. Anemia of chronic disease. PLAN: Patient has been medically treated for non-ST elevation myocardial infarction. This has been discussed with the patient's Health Care Proxy regarding risk of worsening renal dysfunction, most likely will require hemodialysis with coronary angiogram. Health Care Proxy, patient's daughter, has opted to have medical management given to the patient. He is now on aspirin, Plavix, a statin and Lovenox to complete a 5 day courses of Lovenox. Dr. Beverly had recommended decreasing the Depakote to 250 mg at bedtime, Seroquel 25 at bedtime and Sinemet 3 times daily with outpatient follow up. patient will be evaluated by physical therapy and once medically stable from the CAD non-ST elevation myocardial infarction standpoint after 5 days of subcutaneous Lovenox 1 mg per kg renally dosed. We are avoiding nephrotoxins, renally dosing all medications. He is currently at his baseline creatinine.
[2021-05-14] MEDS: ENOXAPARIN 60MG/0.6ML SYRINGE (J1650 PER 10MG) SC SCH (15:15)
[2021-05-14 20:14] VITALS: BP 112/61
[2021-05-14] MEDS: ATORVASTATIN 20 MG TAB PO SCH (20:38)
[2021-05-14] MEDS: TAMSULOSIN 0.4 MG CAP PO SCH (20:39)
[2021-05-14] MEDS: QUEtiapine FUMARATE 25 MG TAB PO SCH (20:39)
[2021-05-14] MEDS: PANTOPRAZOLE 40MG TAB (PROTONIX) PO SCH (20:39)
[2021-05-14] MEDS: traZODone 100 MG TAB PO SCH (20:40)
[2021-05-14] MEDS: AMITRIPTYLINE 25MG TABLET PO SCH (20:40)
[2021-05-14] MEDS: DIVALPROEX 250 MG TAB PO SCH (20:43)
[2021-05-15] VITALS: BP 119/58
[2021-05-15] MEDS: ACETAMINOPHEN TAB 650MG DOSE (2X325MG) PO PRN ×2 (03:07→16:48)
[2021-05-15 04:08] VITALS: BP 109/63
[2021-05-15] MEDS: SLF 3 ML SYR IV SCH ×3 (05:29→20:38)
[2021-05-15 05:35] LABS: HEMATOCRIT 31.4 % (42.0-52.0); HEMOGLOBIN 10.5 g/dl (13.5-17.5); MEAN CORPUSCULAR HEMOGLOBIN 35.4 pg (27.0-33.0); MEAN CORPUSCULAR HGB CONC 33.4 g/dl (32.0-36.5); MEAN CORPUSCULAR VOLUME 105.7 fl (80.0-96.0); PLATELET COUNT, AUTOMATED 260 10^3/uL (150-450); RED BLOOD COUNT 2.97 10^6/uL (4.30-6.10); WHITE BLOOD COUNT 6.7 10^3/uL (4.0-10.0)
[2021-05-15 05:59] LABS: ALBUMIN 2.7 GM/DL (3.2-5.2); BILIRUBIN,TOTAL 0.2 MG/DL (0.2-1.0); CK-MB VALUE MASS 3.4 NG/ML (<3.6); CREATININE FOR GFR 1.29 MG/DL (0.70-1.30); GLOMERULAR FILTRATION RATE 58.3 (>42); MB/CK RELATIVE INDEX 2.17 (< OR =4); TOTAL PROTEIN 6.2 GM/DL (6.4-8.2); TROPONIN I 0.99 NG/ML (< 0.10)
[2021-05-15 08:00] VITALS: BP 129/65
[2021-05-15] MEDS: SUCRALFATE SUSP 1GM/10ML UD PO SCH ×4 (09:13→20:34)
[2021-05-15] MEDS: PREGABALIN 50 MG CAP (LYRICA) PO SCH ×3 (09:14→20:35)
[2021-05-15] MEDS: allopurinoL 300 MG TAB PO SCH (09:14)
[2021-05-15] MEDS: HumaLOG INSULIN (NovoLOG) PER UNIT SC SCH ×4 (09:14→21:00)
[2021-05-15] MEDS: MULTIVITAMINS/MINERALS THERAP 1 TAB PO SCH (09:15)
[2021-05-15] MEDS: DOCUSATE SODIUM 100MG CAPSULE PO SCH ×2 (09:15→20:34)
[2021-05-15] MEDS: FOLIC ACID 1 MG TAB PO SCH (09:15)
[2021-05-15] MEDS: POTASSIUM CHLORIDE 10 MEQ SR TABLET PO SCH (09:15)
[2021-05-15] MEDS: FINASTERIDE 5 MG TAB PO SCH (09:15)
[2021-05-15] MEDS: CLOPIDOGREL 75 MG TAB PO SCH (09:15)
[2021-05-15] MEDS: ASPIRIN 81 MG CHEW TABLET PO SCH (09:15)
[2021-05-15] MEDS: CARVedilol 12.5 MG TAB PO SCH ×2 (09:16→20:36)
[2021-05-15] MEDS: amLODIPine 5 MG TAB PO SCH (09:16)
--- NOTE | 2021-05-15 09:49 | IPNPDOC ---
Subjective Date Seen The patient was seen on 05/15/21. Subjective Chief Complaint/HPI Mr. Tillman is a 71 year old male with Parkinson's disease, suspected Lewy body dementia, and DM type 2 who is here for AMS and found to have NSTEMI. This morning, he denies any chest pain or dyspnea. He does report abdominal pain that started overnight. He was given oral medications (patient unsure what he was given, med list does not indicate anything was given for this) and pain improved. Pain started to come back. Epigastric pain that feels like someone punched him in the abdomen. Otherwise, reports that it is abating towards the end of questions. Mild tenderness with palpation of abdomen. No events on telemetry. Troponin negative this morning. Objective Physical Examination General Exam: Positive: Alert, Cooperative Eye Exam: Negative: Sclera icteric Neck Exam: Positive: Supple Chest Exam: Positive: Clear to auscultation Heart Exam: Positive: Rate Normal, Regular Rhythm Abdomen Exam: Positive: Normal bowel sounds, Soft, Tenderness Extremity Exam: Negative: Edema Neuro Exam: Positive: Normal Speech Psych Exam: Positive: Anxiety Assessment /Plan Assessment Mr. Tillman is a 71 year old male with Parkinson's disease, suspected Lewy body dementia, and DM type 2 who is here for AMS and found to have NSTEMI. Neurology, Dr. Beverly evaluated patient and decreased patient's Sinemet, Depakote, and amitriptyline. Otherwise, patient's daughter has decided medical management for NSTEMI rather than transfer to a center that can perform PCI. Patient will need 5 days of anticoagulation. Patient will need physical therapy Plan/VTE VTE Prophylaxis Ordered?: Yes Plan 1. NSTEMI -Daughter has elected for medical management instead of transfer -Patient is on day 4/5 renally dosed Lovenox -Continue aspirin, clopidogrel, carvedilol 2. Parkinson's disease -Neurology following, recommendations appreciated -Decreased Sinemet, Depakote, and amitriptyline 3. Hypertension -Continue amlodipine and carvedilol 4. Gout -Continue allopurinol 5. BPH -Continue finasteride and tamsulosin 6. DM -Continue sliding scale insulin 7. Dyspepsia -Continue Protonix -Added Carafate -PRN Mylanta 8. DVT ppx -Lovenox Disposition: Will need 5 days of Lovenox. Patient will need physical therapy VS, I&O, 24H, Ricardo Vital Signs/I&O Vital Signs Date Time Temp Pulse Resp B/P (MAP) Pulse Ox O2 Delivery O2 Flow Rate FiO2 05/15/21 08:00 98.3 75 12 129/65 (86) 94 Room Air 05/14/21 00:45 2.0 I&O- Last 24 Hours up to 6 AM 05/15/21 06:00 Intake Total 720 ml Output Total 800 ml Balance -80 ml Laboratory Data 24H LABS Laboratory Tests 2 05/14/21 11:57: Bedside Glucose (Misc Panel) 92 05/14/21 17:56: Bedside Glucose (Misc Panel) 105 05/14/21 19:23: Bedside Glucose (Misc Panel) 130H 05/15/21 05:02: Nucleated Red Blood Cells % (auto) 0.0, Anion Gap 1L, Glomerular Filtration Rate 58.3, Calcium Level 8.0L, Total Bilirubin 0.2, Aspartate Amino Transf (AST/SGOT) 29, Alanine Aminotransferase (ALT/SGPT) 19, Alkaline Phosphatase 71, Total Creatine Kinase 157, Creatine Kinase MB 3.4, Creatine Kinase MB Relative Index 2.17, Troponin I 0.99#H, Total Protein 6.2L, Albumin 2.7L, Albumin/Globulin Ratio 0.8 CBC/BMP Laboratory Tests 05/15/21 05:02 Microbiology Microbiology 05/12/21 Blood Culture - Preliminary, Resulted No Growth after 48 hours. All Specime... 05/12/21 Blood Culture - Preliminary, Resulted No Growth after 72 hours. All specime... LUÍS RIVERA DO May 15, 2021 09:49
[2021-05-15] MEDS: ACYCLOVIR 200 MG CAPSULE PO SCH ×3 (10:42→18:10)
[2021-05-15] MEDS: ENTACAPONE 200MG TABLET (COMTAN) PO SCH ×3 (10:42→18:10)
[2021-05-15] MEDS: SINEMET 25-100 MG TAB PO SCH ×3 (10:42→18:10)
[2021-05-15] MEDS: PRAMIPEXOLE 0.25 MG TAB PO SCH ×3 (10:42→18:10)
[2021-05-15 12:00] VITALS: BP 137/71
[2021-05-15] MEDS: ENOXAPARIN 60MG/0.6ML SYRINGE (J1650 PER 10MG) SC SCH (12:17)
[2021-05-15 16:23] VITALS: BP 133/80
[2021-05-15] MEDS: traZODone 100 MG TAB PO SCH (20:34)
[2021-05-15] MEDS: PANTOPRAZOLE 40MG TAB (PROTONIX) PO SCH (20:35)
[2021-05-15] MEDS: ATORVASTATIN 20 MG TAB PO SCH (20:35)
[2021-05-15] MEDS: TAMSULOSIN 0.4 MG CAP PO SCH (20:35)
[2021-05-15] MEDS: AMITRIPTYLINE 25MG TABLET PO SCH (20:35)
[2021-05-15] MEDS: guaiFENesin ER 600 MG TAB PO SCH (20:35)
[2021-05-15] MEDS: QUEtiapine FUMARATE 25 MG TAB PO SCH (20:35)
[2021-05-15] MEDS: DIVALPROEX 250 MG TAB PO SCH (20:37)
[2021-05-15 22:00] VITALS: BP 118/62
[2021-05-16] MEDS: SLF 3 ML SYR IV SCH ×3 (05:58→19:53)
[2021-05-16 06:00] VITALS: BP 121/61
[2021-05-16 06:13] LABS: HEMATOCRIT 29.6 % (42.0-52.0); HEMOGLOBIN 9.6 g/dl (13.5-17.5); MEAN CORPUSCULAR HEMOGLOBIN 34.4 pg (27.0-33.0); MEAN CORPUSCULAR HGB CONC 32.4 g/dl (32.0-36.5); MEAN CORPUSCULAR VOLUME 106.1 fl (80.0-96.0); PLATELET COUNT, AUTOMATED 251 10^3/uL (150-450); RED BLOOD COUNT 2.79 10^6/uL (4.30-6.10); WHITE BLOOD COUNT 5.8 10^3/uL (4.0-10.0)
[2021-05-16 06:40] LABS: ALBUMIN 2.7 GM/DL (3.2-5.2); ALT/SGPT 24 U/L (12-78); BILIRUBIN,TOTAL 0.2 MG/DL (0.2-1.0); BLOOD UREA NITROGEN 15 MG/DL (7-18); CALCIUM LEVEL 7.7 MG/DL (8.8-10.2); CARBON DIOXIDE LEVEL 26 MEQ/L (21-32); CHLORIDE LEVEL 113 MEQ/L (98-107); CREATININE FOR GFR 1.16 MG/DL (0.70-1.30); GLOMERULAR FILTRATION RATE > 60.0 (>42); GLUCOSE, FASTING 92 MG/DL (70-100); POTASSIUM SERUM 4.1 MEQ/L (3.5-5.1); SODIUM LEVEL 141 MEQ/L (136-145); TOTAL PROTEIN 5.7 GM/DL (6.4-8.2)
[2021-05-16] MEDS: HumaLOG INSULIN (NovoLOG) PER UNIT SC SCH ×4 (07:24→21:00)
[2021-05-16] MEDS: guaiFENesin ER 600 MG TAB PO SCH ×2 (09:31→19:50)
[2021-05-16] MEDS: SUCRALFATE SUSP 1GM/10ML UD PO SCH ×4 (09:31→19:50)
[2021-05-16] MEDS: allopurinoL 300 MG TAB PO SCH (09:31)
[2021-05-16] MEDS: PREGABALIN 50 MG CAP (LYRICA) PO SCH ×3 (09:31→19:52)
[2021-05-16] MEDS: CARVedilol 12.5 MG TAB PO SCH ×2 (09:32→19:51)
[2021-05-16] MEDS: FOLIC ACID 1 MG TAB PO SCH (09:32)
[2021-05-16] MEDS: PRAMIPEXOLE 0.25 MG TAB PO SCH ×3 (09:32→17:40)
[2021-05-16] MEDS: ACYCLOVIR 200 MG CAPSULE PO SCH ×3 (09:32→17:40)
[2021-05-16] MEDS: FINASTERIDE 5 MG TAB PO SCH (09:32)
[2021-05-16] MEDS: SINEMET 25-100 MG TAB PO SCH ×3 (09:32→17:40)
[2021-05-16] MEDS: CLOPIDOGREL 75 MG TAB PO SCH (09:32)
[2021-05-16] MEDS: DOCUSATE SODIUM 100MG CAPSULE PO SCH ×2 (09:33→19:52)
[2021-05-16] MEDS: ENTACAPONE 200MG TABLET (COMTAN) PO SCH ×3 (09:33→17:40)
[2021-05-16] MEDS: amLODIPine 5 MG TAB PO SCH (09:33)
[2021-05-16] MEDS: MULTIVITAMINS/MINERALS THERAP 1 TAB PO SCH (09:33)
[2021-05-16] MEDS: ASPIRIN 81 MG CHEW TABLET PO SCH (09:33)
[2021-05-16] MEDS: POTASSIUM CHLORIDE 10 MEQ SR TABLET PO SCH (09:33)
--- NOTE | 2021-05-16 09:39 | IPNPDOC ---
Subjective Date Seen The patient was seen on 05/16/21. Subjective Chief Complaint/HPI Mr. Tillman is a 71 year old male with Parkinson's disease, suspected Lewy body dementia, and DM type 2 who is here for AMS and found to have NSTEMI. This morning, he denies any chest pain or dyspnea. Abdominal pain improved. Today is the last day of anticoagulation. Objective Physical Examination General Exam: Positive: Alert, Cooperative Eye Exam: Negative: Sclera icteric Neck Exam: Positive: Supple Chest Exam: Positive: Clear to auscultation Heart Exam: Positive: Rate Normal, Regular Rhythm Abdomen Exam: Positive: Normal bowel sounds, Soft Extremity Exam: Negative: Edema Neuro Exam: Positive: Normal Speech Psych Exam: Positive: Anxiety Assessment /Plan Assessment Mr. Tillman is a 71 year old male with Parkinson's disease, suspected Lewy body dementia, and DM type 2 who is here for AMS and found to have NSTEMI. Neurology, Dr. Beverly evaluated patient and decreased patient's Sinemet, Depakote, and amitriptyline. Otherwise, patient's daughter has decided medical management for NSTEMI rather than transfer to a center that can perform PCI. Patient will need 5 days of anticoagulation. Patient will need physical therapy Plan/VTE VTE Prophylaxis Ordered?: Yes Plan 1. NSTEMI -Daughter has elected for medical management instead of transfer -Patient is on day 5 renally dosed Lovenox -Continue aspirin, clopidogrel, carvedilol 2. Parkinson's disease -Neurology following, recommendations appreciated -Decreased Sinemet, Depakote, and amitriptyline 3. Hypertension -Continue amlodipine and carvedilol 4. Gout -Continue allopurinol 5. BPH -Continue finasteride and tamsulosin 6. DM -Continue sliding scale insulin 7. Dyspepsia -Continue Protonix -Added Carafate -PRN Mylanta 8. DVT ppx -Lovenox Disposition: Today will be last day of anticoagulation. Patient will need physical therapy VS, I&O, 24H, Fishbone Vital Signs/I&O Vital Signs Date Time Temp Pulse Resp B/P (MAP) Pulse Ox O2 Delivery O2 Flow Rate FiO2 05/16/21 09:32 75 120/70 05/16/21 06:00 97.5 17 95 Room Air 05/14/21 00:45 2.0 I&O- Last 24 Hours up to 6 AM 05/16/21 05:59 Intake Total 810 ml Output Total 875 ml Balance -65 ml Laboratory Data 24H LABS Laboratory Tests 2 05/15/21 11:38: Bedside Glucose (Misc Panel) 97 05/15/21 16:59: Bedside Glucose (Misc Panel) 126H 05/15/21 20:13: Bedside Glucose (Misc Panel) 91 05/16/21 05:48: Nucleated Red Blood Cells % (auto) 0.0, Anion Gap 2L, Glomerular Filtration Rate > 60.0, Calcium Level 7.7L, Total Bilirubin 0.2, Aspartate Amino Transf (AST/SGOT) 24, Alanine Aminotransferase (ALT/SGPT) 24, Alkaline Phosphatase 59, Total Protein 5.7L, Albumin 2.7L, Albumin/Globulin Ratio 0.9 CBC/BMP Laboratory Tests 05/16/21 05:48 Microbiology Microbiology 05/12/21 Blood Culture - Preliminary, Resulted No Growth after 72 hours. All specime... 05/12/21 Blood Culture - Preliminary, Resulted No Growth after 72 hours. All specime... LUÍS RIVERA DO May 16, 2021 09:39
[2021-05-16] MEDS: ENOXAPARIN 60MG/0.6ML SYRINGE (J1650 PER 10MG) SC SCH (12:52)
[2021-05-16] MEDS: ATORVASTATIN 20 MG TAB PO SCH (19:50)
[2021-05-16] MEDS: TAMSULOSIN 0.4 MG CAP PO SCH (19:50)
[2021-05-16] MEDS: DIVALPROEX 250 MG TAB PO SCH (19:51)
[2021-05-16] MEDS: traZODone 100 MG TAB PO SCH (19:52)
[2021-05-16] MEDS: QUEtiapine FUMARATE 25 MG TAB PO SCH (19:52)
[2021-05-16] MEDS: AMITRIPTYLINE 25MG TABLET PO SCH (19:52)
[2021-05-16] MEDS: PANTOPRAZOLE 40MG TAB (PROTONIX) PO SCH (19:52)
[2021-05-16 22:00] VITALS: BP 111/69
[2021-05-17] MEDS ORDERED: ANUSOL HC 25MG SUPP PR ONE (05:10)
[2021-05-17] MEDS: SLF 3 ML SYR IV SCH ×2 (05:26→13:05)
[2021-05-17 06:00] VITALS: BP 147/75
[2021-05-17 06:02] LABS: HEMATOCRIT 31.7 % (42.0-52.0); HEMOGLOBIN 10.6 g/dl (13.5-17.5); MEAN CORPUSCULAR HGB CONC 33.4 g/dl (32.0-36.5); MEAN CORPUSCULAR VOLUME 104.6 fl (80.0-96.0); PLATELET COUNT, AUTOMATED 268 10^3/uL (150-450); RED BLOOD COUNT 3.03 10^6/uL (4.30-6.10); WHITE BLOOD COUNT 8.4 10^3/uL (4.0-10.0)
[2021-05-17 06:31] LABS: ALT/SGPT 26 U/L (12-78); BILIRUBIN,TOTAL 0.3 MG/DL (0.2-1.0); BLOOD UREA NITROGEN 13 MG/DL (7-18); CALCIUM LEVEL 7.7 MG/DL (8.8-10.2); CARBON DIOXIDE LEVEL 27 MEQ/L (21-32); CHLORIDE LEVEL 110 MEQ/L (98-107); CREATININE FOR GFR 1.19 MG/DL (0.70-1.30); GLOMERULAR FILTRATION RATE > 60.0 (>42); GLUCOSE, FASTING 102 MG/DL (70-100); SODIUM LEVEL 139 MEQ/L (136-145); TOTAL PROTEIN 6.7 GM/DL (6.4-8.2)
[2021-05-17] MEDS: HumaLOG INSULIN (NovoLOG) PER UNIT SC SCH ×2 (07:30→12:00)
[2021-05-17] MEDS: SUCRALFATE SUSP 1GM/10ML UD PO SCH ×2 (07:30→12:00)
--- NOTE | 2021-05-17 09:00 | REP ---
INDICATION: Toes cross over, pain with ambulation. COMPARISON: None. TECHNIQUE: Bilateral foot series: Total of 8 views. FINDINGS: Four views of the right foot demonstrate a moderate to marked hallux valgus. There is diffuse osteopenia. There is old posttraumatic deformity of the proximal phalanx of the great toe and there is some valgus deformity of the IP joint of the great toe. There is also valgus deformity of the DIP joint of the 2nd toe. There is old posttraumatic deformity of the distal end of the 4th metatarsal on the right. No acute fracture or subluxation is seen. There is vascular calcification.. Four views of the left foot demonstrate similar findings with advanced hallux valgus and valgus deformity of the IP joint of the great toe mild in degree. There is advanced valgus deformity of the PIP joint of the 2nd toe on the left in this is even more prominent than that on the right. There is some osteoarthritis at the 1st MTP joint. Diffuse osteopenia and vascular calcification are noted on the left as well. There is a tiny plantar calcaneal spur on the left. . IMPRESSION: Advanced hallux valgus. Valgus deformities also noted the 2nd PIP joints bilaterally. Osteoporosis and vascular calcification are also noted.. <Electronically signed by Perfecto Armas > 05/17/21 [id number]
[2021-05-17] MEDS: DOCUSATE SODIUM 100MG CAPSULE PO SCH (09:41)
[2021-05-17] MEDS: MULTIVITAMINS/MINERALS THERAP 1 TAB PO SCH (09:41)
[2021-05-17] MEDS: ACYCLOVIR 200 MG CAPSULE PO SCH ×2 (09:41→13:05)
[2021-05-17] MEDS: SINEMET 25-100 MG TAB PO SCH ×2 (09:42→13:05)
[2021-05-17] MEDS: guaiFENesin ER 600 MG TAB PO SCH (09:42)
[2021-05-17] MEDS: CLOPIDOGREL 75 MG TAB PO SCH (09:42)
[2021-05-17] MEDS: PREGABALIN 50 MG CAP (LYRICA) PO SCH (09:42)
[2021-05-17] MEDS: ENTACAPONE 200MG TABLET (COMTAN) PO SCH ×2 (09:42→13:05)
[2021-05-17 09:43] VITALS: BP 132/82
[2021-05-17] MEDS: FINASTERIDE 5 MG TAB PO SCH (09:43)
[2021-05-17] MEDS: FOLIC ACID 1 MG TAB PO SCH (09:43)
[2021-05-17] MEDS: CARVedilol 12.5 MG TAB PO SCH (09:43)
[2021-05-17] MEDS: amLODIPine 5 MG TAB PO SCH (09:43)
[2021-05-17] MEDS: ASPIRIN 81 MG CHEW TABLET PO SCH (09:43)
[2021-05-17] MEDS: PRAMIPEXOLE 0.25 MG TAB PO SCH ×2 (09:44→13:05)
[2021-05-17] MEDS: POTASSIUM CHLORIDE 10 MEQ SR TABLET PO SCH (09:44)
[2021-05-17] MEDS: allopurinoL 300 MG TAB PO SCH (09:44)
[2021-05-17] MEDS ORDERED: AMIT25TA17 PO (10:19)
[2021-05-17] MEDS ORDERED: DEPA250T32 PO (10:19)
[2021-05-17] MEDS ORDERED: ASPI81CH8 PO (10:19)
[2021-05-17] MEDS ORDERED: CARB25TA9 PO (10:19)
[2021-05-17] MEDS ORDERED: CLOP75TA2 PO (10:19)
[2021-05-17] MEDS ORDERED: ATOR40TA75 PO (10:19)
[2021-05-17] MEDS ORDERED: QUET25TA3 PO (10:19)
[2021-05-17] MEDS: ENOXAPARIN 60MG/0.6ML SYRINGE (J1650 PER 10MG) SC SCH (13:00)
--- NOTE | 2021-05-17 18:43 | DS.PDOC ---
Discharge Summary General Date of Admission May 12, 2021 at 02:29 Date of Discharge May 17, 2021 Specialist/Consultants Involve Neurology, Dr. Beverly Discharge Summary PROCEDURES PERFORMED DURING STAY: None ADMITTING DIAGNOSES: 1. Toxic metabolic encephalopathy 2. NSTEMI 3. HTN 4. Gout 5. BPH DISCHARGE DIAGNOSES: 1. Toxic metabolic encephalopathy 2. NSTEMI 3. HTN 4. Gout 5. BPH 6. Suspected Lewy body dementia 7. Parkinsonism 8. Dyskinesias with motor fluctuations COMPLICATIONS/CHIEF COMPLAINT: Altered Mental Status,Parkinsons Disease. HISTORY OF PRESENT ILLNESS: Copied from admitting attending's H&P " 71-year-old male with a history of Parkinson's disease. Suspected dementia, gout, diabetes type 2, CKD, BPH and hypertension, lives alone, was brought to ER by his daughter for approximately 1 month history of inappropriate behaviors, poor memory and wandering from the house as well as recurrent and non purposeful flailing movements of the upper and lower extremities. The patient is somnolent and disoriented. In the ER with persistent flailing movements of his arms and legs. Patient currently seeing Dr. Lezama for the management of Parkinson's disorder has been compliant with medications. CT of the head was without acute findings Of note, most concerning is an elevated troponin which was found in the ER of 2.68. This was discussed with the patient's daughter, just to proceed with medical management rather than transfer to Medical Center with PCI capabilities. Risks of and morbidity/mortality were explained. Patient was made DNR/DNI in the ED. Dr. Beverly was consulted from the ER. " HOSPITAL COURSE: During hospitalization, neurology, Dr. Beverly evaluated patient. Recommended decreasing Sinemet, Depakote, and amitriptyline. Also during hospitalization, patient's Seroquel was decreased. Mentally, patient improved. Otherwise, patient had a total of 5 days of renally dosed Lovenox. Patient's troponin declined. On day of discharge, patient denied any chest pain or dyspnea. He was anxious to go home and did not want to go to rehab. PFS worked with patient's daughter for discharge planning. Family to provide 24/7 care at home. Patient will be discharged home with home health. DISCHARGE MEDICATIONS: Please see below. ALLERGIES: Please see below. PHYSICAL EXAMINATION ON DISCHARGE: VITAL SIGNS: Please see below. GENERAL: Comfortable, in no apparent distress. HEENT: Head normocephalic/atraumatic, EOMI, sclera clear. NECK: Supple. RESPIRATORY: Lungs clear to auscultation bilaterally, no rales, wheeze or rhonchi. CARDIOVASCULAR: Regular rate and rhythm. ABDOMEN: Soft, nontender, no guarding or rebound tenderness. Normal bowel sounds. PSYCHOLOGICAL: Anxious LABORATORY DATA: Please see below. IMAGING: Radiology interpretation Chest x-ray 1. Minimal left base atelectasis or scar. 2. Otherwise negative supine chest. CT head 1. Minimal chronic ischemic white matter change and moderate atrophy. 2. Otherwise negative noncontrast head CT. X-ray feet bilaterally Advanced hallux valgus. Valgus deformities also noted the 2nd PIP joints bilaterally. Osteoporosis and vascular calcification are also noted PROGNOSIS: Good ACTIVITY: As tolerated. DIET: 2 g sodium DISCHARGE PLAN: Home DISPOSITION: 01 Home, Self-Care. DISCHARGE INSTRUCTIONS: 1. Follow-up with PCP in 1 week 2. Follow-up with neurology 3. Referral to cardiology for NSTEMI DISCHARGE CONDITION: Stable. Total time spent for discharge planning, discharge summary, medication reconciliation: 45 minutes Vital Signs/I&Os Vital Signs Date Time Temp Pulse Resp B/P (MAP) Pulse Ox O2 Delivery O2 Flow Rate FiO2 05/17/21 09:43 70 132/82 05/17/21 06:00 97.5 17 99 Room Air 05/14/21 00:45 2.0 I&O- Last 24 Hours up to 6 AM 05/17/21 06:00 Intake Total 1200 ml Output Total 650 ml Balance 550 ml Laboratory Data Labs 24H Laboratory Tests 2 05/16/21 20:30: Bedside Glucose (Misc Panel) 160H 05/17/21 05:48: Nucleated Red Blood Cells % (auto) 0.0, Anion Gap 2L, Glomerular Filtration Rate > 60.0, Calcium Level 7.7L, Total Bilirubin 0.3, Aspartate Amino Transf (AST/SGOT) 27, Alanine Aminotransferase (ALT/SGPT) 26, Alkaline Phosphatase 69, Total Protein 6.7, Albumin 3.0L, Albumin/Globulin Ratio 0.8 CBC/BMP Laboratory Tests 05/17/21 05:48 FSBS Laboratory Tests Test 05/16/21 20:30 Range/Units Bedside Glucose (Misc Panel) 160 83-110 MG/DL Microbiology Microbiology 05/12/21 Blood Culture - Final, Complete NO GROWTH AFTER 5 DAYS 05/12/21 Blood Culture - Final, Complete NO GROWTH AFTER 5 DAYS Discharge Medications Scheduled Acyclovir (Acyclovir) 200 Mg Capsule, 200 MG PO TID, (Reported) 1000,1400,1800 Allopurinol (Zyloprim) 300 Mg Tablet, 150 MG PO DAILY, (Reported) Amitriptyline HCl (Amitriptyline HCl) 25 Mg Tablet, 25 MG PO QHS Amlodipine Besylate (Amlodipine Besylate) 5 Mg Tablet, 5 MG PO DAILY, (Reported) Aspirin (Children's Aspirin) 81 Mg Tab.chew, 81 MG PO DAILY Atorvastatin Calcium (Atorvastatin Calcium) 40 Mg Tablet, 40 MG PO DAILY Carbidopa/Levodopa (Carbidopa-Levodopa 25-100 Tab) 1 Each Tablet, 1 TAB PO TID@1000,1400,1800 Carvedilol (Carvedilol) 25 Mg Tablet, 25 MG PO BID, (Reported) Clopidogrel Bisulfate (Clopidogrel) 75 Mg Tablet, 75 MG PO DAILY Divalproex Sodium (Depakote) 250 Mg Tablet.dr, 250 MG PO QHS Entacapone (Entacapone) 200 Mg Tablet, 200 MG PO TID, (Reported) 1000,1400,1800 Epoetin Vito-Epbx (Retacrit) 10,000 Unit/1 Ml Vial, 1,000 UNITS SC QMONTH, (Reported) Ergocalciferol (Vitamin D2) (Vitamin D2) 50,000 Units Cap, 50,000 UNITS PO QWEEK, (Reported) FRIDAY Finasteride (Finasteride) 5 Mg Tablet, 5 MG PO DAILY, (Reported) Folic Acid (Folic Acid) 1 Mg Tablet, 1 MG PO DAILY, (Reported) Levocetirizine Dihydrochloride (Levocetirizine Dihydrochloride) 5 Mg Tablet, 5 MG PO QPM, (Reported) Levothyroxine Sodium (Levothyroxine Sodium) 100 Mcg Tablet, 100 MCG PO QAM, (Reported) Multivit-Min/FA/Lycopen/Lutein (Centrum Silver Tablet) 1 Each Tablet, 1 TAB PO DAILY, (Reported) Pantoprazole Sodium (Pantoprazole Sodium) 40 Mg Tablet.dr, 40 MG PO QHS, (Reported) Potassium Chloride (Potassium Chloride) 10 Meq Tablet.er, 10 MEQ PO DAILY, (Reported) Pramipexole Di-HCl (Mirapex) 0.25 Mg Tablet, 0.25 MG PO TID, (Reported) 1000,1400,1800 Pregabalin (Pregabalin) 50 Mg Capsule, 50 MG PO TID, (Reported) Quetiapine Fumarate (Quetiapine Fumarate) 25 Mg Tablet, 25 MG PO QHS Sennosides (Senna) 8.6 Mg Tablet, 8.6 MG PO DAILY, (Reported) Sitagliptin Phosphate (Januvia) 100 Mg Tablet, 100 MG PO QAM, (Reported) Tamsulosin Hcl (Tamsulosin HCl) 0.4 Mg Capsule, 0.4 MG PO QPM, (Reported) Trazodone HCl (Trazodone HCl) 100 Mg Tablet, 200 MG PO QHS, (Reported) Scheduled PRN Polyethylene Glycol 3350 (Miralax) 119 Gm Powder, 17 GM PO DAILY PRN for CONSTIPATION, (Reported) dilute in 8 ounces of water or juice Allergies Coded Allergies: No Known Allergies (Unverified , 05/11/21) LUÍS RIVERA DO May 17, 2021 18:43
== END 2021-05-17 16:20 | disposition home health service (06) | DRG 56 ==
LOC: M ED 19:53 → M ED INP 05-12 02:29 → ENRESERV 05-12 03:15 → M PCU 05-12 05:51 → M MSPAV 05-15 16:23
PROVIDERS: ADMIT Family Medicine; ATTEND Internal Medicine
DX: G31.83 Neurocognitive disorder with Lewy bodies (principal); I21.4 Non-ST elevation (NSTEMI) myocardial infarction; G92 Toxic encephalopathy; F02.81 Dementia in other diseases classified elsewhere, unspecified severity, with behavioral disturbance; N18.30 Chronic kidney disease, stage 3 unspecified; M10.9 Gout, unspecified; E11.22 Type 2 diabetes mellitus with diabetic chronic kidney disease; N40.0 Benign prostatic hyperplasia without lower urinary tract symptoms; D63.8 Anemia in other chronic diseases classified elsewhere; R26.89 Other abnormalities of gait and mobility; I12.9 Hypertensive chronic kidney disease with stage 1 through stage 4 chronic kidney disease, or unspecified chronic kidney disease; Z66 Do not resuscitate; D72.829 Elevated white blood cell count, unspecified; Z79.899 Other long term (current) drug therapy; Z20.822 Contact with and (suspected) exposure to COVID-19

== ENCOUNTER 2021-06-29 17:06 | Emergency (ER) | payer MEDICARE, OTHER ==
[~2021-06-29] VITALS: Ht 182.9 cm; Wt 71.4 kg
[~2021-06-29 17:06] MED LIST: ACYC200C8 PO; AMIT25TA17 PO; AMIT75TA PO; AMLO1TAB24 PO; ASPI81CH8 PO; ATOR40TA75 PO; CARB1TAB97 PO; CARB25TA9 PO; CARV25TA PO; CENT1TAB PO; CLOP75TA2 PO; DEPA250T32 PO; DIVA250T67 PO; ENTA1TAB PO; ERGO500029 PO; FINA5TAB2 PO; FOLI1TAB11 PO; JANU100T PO; LEVO100T5 PO; LEVOTAB10 PO; MIRA0.254 PO; MIRA3350 PO; PANT40TA29 PO; POTA1TAB23 PO; PREG50CA2 PO; QUET1TAB17 PO; RETA1000 SC; SENN-80 PO; TAMS1CAP17 PO; TRAZ-189 PO; ZYLO300T6 PO
[2021-06-29] MEDS ORDERED: LIDOCAINE 2% 5ML JELLY UROJET TOP ONE (18:00)
[2021-06-29 18:45] LABS: BASO # 0.1 10^3/uL (0.0-0.2); BASO % 0.9 % (0.0-1.0); EOS # 0.7 10^3/uL (0.0-0.5); EOS % 7.2 % (0.0-3.0); HEMATOCRIT 31.8 % (42.0-52.0); HEMOGLOBIN 10.8 g/dl (13.5-17.5); LYMPH # 2.6 10^3/uL (1.5-5.0); LYMPH % 27.1 % (24.0-44.0); MEAN CORPUSCULAR HEMOGLOBIN 34.3 pg (27.0-33.0); MONO # 0.5 10^3/uL (0.0-0.8); MONO % 5.1 % (2.0-8.0); NEUTROPHILS # 5.7 10^3/uL (1.5-8.5); NEUTROPHILS % 59.3 % (36.0-66.0); PLATELET COUNT, AUTOMATED 375 10^3/uL (150-450); RED BLOOD COUNT 3.15 10^6/uL (4.30-6.10); WHITE BLOOD COUNT 9.6 10^3/uL (4.0-10.0)
[2021-06-29 19:19] LABS: ALBUMIN 3.5 GM/DL (3.2-5.2); BILIRUBIN,TOTAL 0.6 MG/DL (0.2-1.0); CALCIUM LEVEL 9.1 MG/DL (8.8-10.2); CREATININE FOR GFR 1.38 MG/DL (0.70-1.30); GLOMERULAR FILTRATION RATE 53.9 (>42); POTASSIUM SERUM 4.4 MEQ/L (3.5-5.1); TOTAL PROTEIN 6.8 GM/DL (6.4-8.2)
[2021-06-29 22:21] VITALS: BP 140/83
== END 2021-06-29 22:23 | disposition home or self-care (01) ==
LOC: M ED 17:06
DX: R33.9 Retention of urine, unspecified (principal); E11.9 Type 2 diabetes mellitus without complications; I10 Essential (primary) hypertension; N40.0 Benign prostatic hyperplasia without lower urinary tract symptoms; R51.9 Headache, unspecified; K21.9 Gastro-esophageal reflux disease without esophagitis; E03.9 Hypothyroidism, unspecified; G20 Parkinson's disease; M54.9 Dorsalgia, unspecified; F41.9 Anxiety disorder, unspecified; N18.9 Chronic kidney disease, unspecified; Z79.82 Long term (current) use of aspirin; Z79.899 Other long term (current) drug therapy

== ENCOUNTER 2021-07-06 14:01 | Emergency (ER) | payer MEDICARE, OTHER ==
[~2021-07-06] VITALS: Ht 182.9 cm; Wt 76.4 kg
[2021-07-06 14:10] VITALS: BP 172/82
== END 2021-07-06 15:35 | disposition home or self-care (01) ==
LOC: M ED 14:01 → EDBD 14:01 → M ED 15:35
DX: T83.018A Breakdown (mechanical) of other urinary catheter, initial encounter (principal); Y92.9 Unspecified place or not applicable; Y93.9 Activity, unspecified; E11.9 Type 2 diabetes mellitus without complications; I10 Essential (primary) hypertension; K21.9 Gastro-esophageal reflux disease without esophagitis; E03.9 Hypothyroidism, unspecified; R33.9 Retention of urine, unspecified; Z79.82 Long term (current) use of aspirin; Z79.899 Other long term (current) drug therapy

== ENCOUNTER 2021-08-22 01:18 | Emergency (ER) | payer MEDICARE, OTHER ==
[2021-08-22] VITALS (10 sets, daily range): BP systolic 122–146; BP diastolic 70–87
[2021-08-22] MEDS: ASPIRIN 81 MG CHEW TABLET PO ONE ×2 (01:55→02:19)
[2021-08-22 02:07] LABS: BASO # 0.1 10^3/uL (0.0-0.2); BASO % 0.6 % (0.0-1.0); EOS # 1.1 10^3/uL (0.0-0.5); EOS % 7.2 % (0.0-3.0); HEMATOCRIT 23.1 % (42.0-52.0); HEMOGLOBIN 7.7 g/dl (13.5-17.5); LYMPH # 1.9 10^3/uL (1.5-5.0); LYMPH % 12.9 % (24.0-44.0); MEAN CORPUSCULAR HEMOGLOBIN 33.9 pg (27.0-33.0); MEAN CORPUSCULAR HGB CONC 33.3 g/dl (32.0-36.5); MEAN CORPUSCULAR VOLUME 101.8 fl (80.0-96.0); MONO # 0.7 10^3/uL (0.0-0.8); MONO % 4.9 % (2.0-8.0); NEUTROPHILS # 10.9 10^3/uL (1.5-8.5); NEUTROPHILS % 73.8 % (36.0-66.0); PLATELET COUNT, AUTOMATED 369 10^3/uL (150-450); RED BLOOD COUNT 2.27 10^6/uL (4.30-6.10); WHITE BLOOD COUNT 14.8 10^3/uL (4.0-10.0)
[2021-08-22] MEDS ORDERED: ONDANSETRON 4MG/2ML VIAL IV ONE (02:25)
[2021-08-22 02:53] LABS: ALBUMIN 2.5 GM/DL (3.2-5.2); ALT/SGPT 6 U/L (12-78); BILIRUBIN,DIRECT < 0.1 MG/DL (0.0-0.2); BILIRUBIN,TOTAL 0.5 MG/DL (0.2-1.0); BLOOD UREA NITROGEN 29 MG/DL (7-18); CALCIUM LEVEL 8.9 MG/DL (8.8-10.2); CARBON DIOXIDE LEVEL 25 MEQ/L (21-32); CHLORIDE LEVEL 111 MEQ/L (98-107); CPK CREATINE PHOSPHOKINASE 64 U/L (39-308); CREATININE FOR GFR 1.72 MG/DL (0.70-1.30); GLOMERULAR FILTRATION RATE 41.8 (>42); GLUCOSE, FASTING 110 MG/DL (70-100); LIPASE 106 U/L (73-393); MB/CK RELATIVE INDEX 4.69 (< OR =4); NT-PRO BNP 948 PG/ML (<125); POTASSIUM SERUM 4.6 MEQ/L (3.5-5.1); SODIUM LEVEL 140 MEQ/L (136-145); TROPONIN I < 0.02 NG/ML (< 0.10)
--- NOTE | 2021-08-22 04:08 | REPVR ---
PROCEDURE INFORMATION: Exam: XR Chest Exam date and time: 08/22/2021 2:25 AM Age: 71 years old Clinical indication: Cough; Additional info: Dyspnea/cough TECHNIQUE: Imaging protocol: XR of the chest. Views: 1 view. COMPARISON: CR PORTABLE CHEST X-RAY 05/11/2021 9:58 PM FINDINGS: Lungs: The right lung is clear. There is volume loss and streaky opacity inferiorly in the left lung. Pleural spaces: There is a small left pleural effusion. No definite pneumothorax is seen, but there is focal lucency medially in the left upper chest which is not accounted for, and could be a loculated pneumothorax. Heart/Mediastinum: The heart size is grossly within normal limits. Diaphragm: There is further elevation of the left diaphragm compared to the prior exam. Bones/joints: There are displaced left 7th and 8th rib fractures, not seen on the prior chest x-ray. IMPRESSION: 1. Further volume loss in the left lung with further elevation of the left hemidiaphragm and streaky opacity in the left lung which may represent atelectasis. 2. There are displaced left 7th and 8th rib fractures, which were not seen on the prior exam and are presumably acute. Correlate with the clinical history and physical exam. 3. Small left pleural effusion. 4. Focal lucency medially in the left upper chest does not have a typical appearance for pneumothorax but a loculated pneumothorax is possible given the finding of rib fractures. Electronically signed by: Lorna Quarles On 08/22/2021 04:07:53 AM
--- NOTE | 2021-08-22 05:36 | REPVR ---
PROCEDURE INFORMATION: Exam: CT Chest Without Contrast; Diagnostic Exam date and time: 08/22/2021 4:09 AM Age: 71 years old Clinical indication: Injury or trauma; Fall; Blunt trauma (contusions or hematomas) TECHNIQUE: Imaging protocol: Diagnostic computed tomography of the chest without contrast. Radiation optimization: All CT scans at this facility use at least one of these dose optimization techniques: automated exposure control; mA and/or kV adjustment per patient size (includes targeted exams where dose is matched to clinical indication); or iterative reconstruction. COMPARISON: CR PORTABLE CHEST X-RAY 08/22/2021 2:10 AM FINDINGS: Limitations: There is motion artifact. Tubes, catheters and devices: There are surgical clips in the region of the GE junction. Lungs: There is a calcified granuloma in a lingula segment of the left upper lobe. There is volume loss and compressive atelectasis in the left lower lobe and in the left upper lobe. A small amount of density in the dependent regions of the right lower lobe are probably due to atelectasis as well. Pleural spaces: There is a moderate-sized left pleural effusion which mostly layers freely dependently. The fluid measures simple fluid density. No pneumothorax is seen. Heart: The heart is normal in size. There is severe atherosclerotic calcification of the coronary arteries. Aorta: The aorta demonstrates mild atherosclerotic calcification. No aortic aneurysm. Lymph nodes: There is no gross lymphadenopathy. There are small calcified left hilar lymph nodes. Gallbladder and bile ducts: There has been a cholecystectomy. Spleen: There is a calcified granuloma in the spleen. Bones/joints: There are displaced fractures of the left 7th and 8th ribs laterally which appear acute. There are healed fracture deformities further anteriorly in the left 8th rib and in the left 9th and 10th ribs. There is a chronic, ununited fracture of the left 11th rib. There is mild loss of height of the T12 vertebral body, with depression of the superior endplate, probably representing a compression fracture. While of indeterminate age, no lucent fracture lines and no adjacent soft tissue swelling are appreciated to indicate an acute fracture. Soft tissues: There is edema within the left lower lateral chest wall. IMPRESSION: 1. Acute, displaced left 8th and 9th rib fractures, as seen on the chest x-ray. 2. Moderate-sized left pleural effusion. Associated compressive atelectasis in the left lower lobe and left upper lobe. 3. No pneumothorax. Electronically signed by: Lorna Quarles On 08/22/2021 05:36:04 AM
--- NOTE | 2021-08-22 05:46 | REPVR ---
PROCEDURE INFORMATION: Exam: CT Abdomen And Pelvis Without Contrast Exam date and time: 08/22/2021 4:09 AM Age: 71 years old Clinical indication: Abdominal pain; Generalized; Additional info: Trauma TECHNIQUE: Imaging protocol: Computed tomography of the abdomen and pelvis without contrast. Radiation optimization: All CT scans at this facility use at least one of these dose optimization techniques: automated exposure control; mA and/or kV adjustment per patient size (includes targeted exams where dose is matched to clinical indication); or iterative reconstruction. COMPARISON: RENAL US 05/12/2021 8:31 AM FINDINGS: Limitations: There is motion artifact. Pleural spaces: There is a moderate size left pleural effusion. Liver: The unenhanced liver appears unremarkable. Gallbladder and bile ducts: There has been a cholecystectomy. There is no biliary ductal dilation. Pancreas: There is diffuse, benign fatty infiltration of the pancreas. Spleen: A single granuloma is seen in the spleen. Adrenal glands: The adrenal glands are normal. Kidneys and ureters: There is a small nonobstructing stone in the right kidney lower pole. The unenhanced kidneys appear otherwise unremarkable. There are no ureteral stones or hydronephrosis. Stomach and bowel: There are surgical clips in the region of the GE junction. The small bowel appears unremarkable. There is no dilation or thickening of the colon. The rectum is distended with stool to 7.4 cm in diameter. There is stool throughout most of the right and the transverse colon. Appendix: The appendix is enlarged measuring up to 13 mm in diameter. However, there is no adjacent inflammatory change. Intraperitoneal space: There is no evidence of free intraperitoneal or pelvic fluid. There is no free intraperitoneal air. Vasculature: Atherosclerotic changes are present in the abdominal aorta and the iliac arteries. No aortic aneurysm. Lymph nodes: No lymphadenopathy is seen. Urinary bladder: The bladder is unremarkable. No stones identified. There is a rim calcified structure between the bladder and the rectum, of uncertain etiology but of doubtful significance. Reproductive: The prostate appears to have been resected. Bones/joints: There is depression of the superior endplate of the L4 vertebral body with lucent fracture lines and mild anterior displacement of fracture fragments, most consistent with an acute or subacute fracture. There is mild loss of height of the T12 vertebral body without lucent fracture lines, probably a chronic compression fracture. Degenerative endplate changes are seen at multiple levels in the visualized spine. There are mild degenerative changes in both hips. Soft tissues: The soft tissues appear unremarkable. IMPRESSION: 1. Lucent fracture lines, depression of the superior endplate and mild loss of height of the L4 vertebral body, consistent with a compression fracture which is likely acute or subacute. 2. No evidence of acute visceral injury in the abdomen and pelvis. 3. Moderate to large amount of stool in the colon and distention of the rectum with stool to 7.4 cm in diameter. Correlate with symptoms of constipation. 4. Enlargement of the appendix to 13 mm but without associated inflammatory changes. Correlate with any signs or symptoms of appendicitis. Electronically signed by: Lorna Quarles On 08/22/2021 05:46:17 AM
[2021-08-22] MEDS ORDERED: AMIT75TA PO (06:20)
[2021-08-22] MEDS ORDERED: DEPA1TAB3 PO (06:20)
[2021-08-22] MEDS ORDERED: CLOP75TA2 PO (06:20)
[2021-08-22] MEDS ORDERED: QUET1TAB17 PO (06:20)
[2021-08-22] MEDS ORDERED: PREG50CA PO (06:20)
[2021-08-22] MEDS ORDERED: ASPI-161 PO (06:20)
[2021-08-22] MEDS ORDERED: ATOR40TA75 PO (06:20)
[2021-08-22] MEDS ORDERED: ZYRTTAB8 PO (06:20)
[2021-08-22] MEDS ORDERED: VITMTA PO (06:20)
[2021-08-22] MEDS ORDERED: SENN8.6T28 PO (06:20)
[2021-08-22] MEDS ORDERED: HOME MED LIST COMPLETE! XX SCH (06:25)
--- NOTE | 2021-08-22 09:56 | REP ---
INDICATION: fall one week ago. COMPARISON: Comparison head CT study May 12, 2021. TECHNIQUE: Helical scanning is acquired. 5 mm axial images were reformatted. Coronal MPR images were generated. FINDINGS: Bone window settings demonstrate an intact bony calvarium. There is no evidence of skull fracture or incidental bony calvarial lesion. The visualized paranasal sinuses appear clear. No intraorbital abnormality is seen. On soft tissue window setting images; the lateral, third, and fourth ventricles are normal in size and position. Morley-white differentiation pattern is normal above and below the tentorium. There are is no evidence of intracranial hemorrhage. No mass, edema, infarction, or midline shift is seen. No extra-axial fluid collection is appreciated. There is mild vascular calcification at the skull base. There is generalized atrophy again noted and concordant ventricular enlargement. IMPRESSION: Vascular calcification and generalized volume loss. No acute intracranial abnormality. <Electronically signed by Perfecto Armas > 08/22/21 [id number]
--- NOTE | 2021-08-22 10:03 | REP ---
INDICATION: fall one week ago. COMPARISON: None. TECHNIQUE: Helical scanning is acquired and overlapping 2 mm high resolution axial images were generated and reviewed at bone and soft tissue window settings. Coronal and sagittal multiplanar re-formations images are generated. FINDINGS: There is no evidence of cervical spine element fracture. No skull base fracture is seen. Cervical vertebral body heights are preserved. Alignment is normal. Facet joints are normally aligned bilaterally at each cervical level on multiplanar re-formations images. There is no evidence of intraspinal or paraspinal hematoma. No extra vertebral abnormality is seen. There is straightening of the normal cervical lordosis. There is mild degenerative disc disease at C3-4 C5-6, and C6-7 with disc space narrowing. There is mild bilateral uncovertebral spurring at C3-4. There is mild osteoarthritic facet hypertrophy in the midcervical spine. A minimal levoconvex curve is seen at the cervicothoracic junction on coronal MPR images. Vascular calcification is observed in the carotid artery distribution bilaterally. IMPRESSION: Degenerative spondylosis changes mild in degree. Straightening. No traumatic abnormality noted. <Electronically signed by Perfecto Armas > 08/22/21 1000
--- NOTE | 2021-08-22 17:43 | ECGEPIP ---
[facility] - ED Test Date: 2021-08-22 Pat Name: ANGELITA LANDAVERDE Department: Room: - Gender: Male Data Administrator: : [id number] Requested By: ILANA Magana Order Number: [id number] Reading MD: Wendy Heller Measurements Intervals [place] Rate: 90 P: 41 IN: 168 QRS: 18 QRSD: 98 T: 73 QT: 352 QTc: 430 Interpretive Statements Normal sinus rhythm Nonspecific ST and T wave abnormality similar 05/12/21 Electronically Signed on 08-22-2021 17:43:15 EDT by Wendy Heller
== END 2021-08-22 10:36 | disposition short-term general hospital (02) ==
LOC: M ED 01:18
DX: S22.42XA Multiple fractures of ribs, left side, initial encounter for closed fracture (principal); S32.040A Wedge compression fracture of fourth lumbar vertebra, initial encounter for closed fracture; J94.2 Hemothorax; N17.9 Acute kidney failure, unspecified; D64.9 Anemia, unspecified; X58.XXXA Exposure to other specified factors, initial encounter; Y92.9 Unspecified place or not applicable; Y93.9 Activity, unspecified; Y99.9 Unspecified external cause status; E11.9 Type 2 diabetes mellitus without complications; I10 Essential (primary) hypertension; N40.0 Benign prostatic hyperplasia without lower urinary tract symptoms; G20 Parkinson's disease; F03.90 Unspecified dementia, unspecified severity, without behavioral disturbance, psychotic disturbance, mood disturbance, and anxiety; K59.00 Constipation, unspecified; J90 Pleural effusion, not elsewhere classified; M50.30 Other cervical disc degeneration, unspecified cervical region; Z79.899 Other long term (current) drug therapy; Z79.4 Long term (current) use of insulin
CPT/HCPCS: 36430; 70450; 71045; 71250; 72125; 74176; 80048; 80076; 82550; 82553; 83690; 83880; 84443; 84484; 85025; 85379; 86850; 86900; 86901; 86920; 87798; 93005; 93041; 94760; 96374; 99285; J2405; P9016